=== PATIENT | female | born 1940 | race Caucasian/White ===

== ENCOUNTER 2021-06-10 12:37 | Day surgery (SDC) | payer MEDICARE, OTHER ==
[~2021-06-10] VITALS: Ht 162.6 cm; Wt 71.9 kg
[~2021-06-10 12:37] MED LIST: ASCO500 PO; ASPI81CH PO; ATOR10 PO; BACL10 PO; Bystolic20 MG PO; CALMAGZIN PO; CHOL10002 PO; CYCL10 PO; DICL75ER PO; DIGO.25 PO; ETAN50I IM; Elemental Calc600 MG PO; FISH1000 PO; FURO40 PO; Glucosamine-Ch480 ML PO; HYDR1TAB94 PO; L-LYSINE1000 MG PO; L-Lysine500 M1 PO; LEVSOD100 PO; LOSA50 PO; LOSHYD100 PO; METO25; METO25 PO; METO50 PO; PAN-C 500 TABL1 EACH PO; POTA10T PO; Prempro 0.3 MG/1 TAB PO; Prilosec Otc20 MG; Prilosec Otc20 MG PO; TERA5 PO; Triamcinolone A15 G4 TP; Vitamin D2000 UNIT PO; XARELTO20 MG PO
--- NOTE | 2021-06-10 13:41 | NUR ---
06/10/21 1341 Guzman Davis CALL LIGHT WITHIN REACH
== END 2021-06-10 15:50 | disposition home or self-care (01) ==
LOC: ORSCSDS 12:37
PROVIDERS: Ophthalmology
PROC: 08RJ3JZ Replacement of Right Lens with Synthetic Substitute, Percutaneous Approach (ICD-10-PCS; principal; 2021-06-10 14:00)
DX: H25.11 Age-related nuclear cataract, right eye (principal); I48.91 Unspecified atrial fibrillation; Z79.01 Long term (current) use of anticoagulants; I10 Essential (primary) hypertension; I50.9 Heart failure, unspecified; Z79.899 Other long term (current) drug therapy
CPT/HCPCS: J2001; J2250; J3010; J3301; J7040; V2632

== ENCOUNTER 2021-06-24 09:44 | Day surgery (SDC) | payer MEDICARE, OTHER ==
[~2021-06-24] VITALS: Ht 162.6 cm; Wt 72.4 kg
[2021-06-24] MEDS ORDERED: CARV6.25 PO (10:06)
[2021-06-24] MEDS ORDERED: HYDACE10B PO (10:06)
--- NOTE | 2021-06-24 10:10 | NUR ---
06/24/21 1010 Guzman Daivs CALL LIGHT WITHIN REACH. PLEDGETT WITH TETRACAIN DROPS AT 1003
== END 2021-06-24 11:52 | disposition home or self-care (01) ==
LOC: ORSCSDS 09:44
PROVIDERS: Ophthalmology
PROC: 08RK3JZ Replacement of Left Lens with Synthetic Substitute, Percutaneous Approach (ICD-10-PCS; principal; 2021-06-24 11:00)
DX: H25.12 Age-related nuclear cataract, left eye (principal); I10 Essential (primary) hypertension; E78.00 Pure hypercholesterolemia, unspecified; Z79.01 Long term (current) use of anticoagulants; Z79.899 Other long term (current) drug therapy
CPT/HCPCS: J2001; J2250; J3010; J3301; J7040; V2632

== ENCOUNTER 2024-03-20 11:16 | Day surgery (SDC) | payer MEDICARE, OTHER ==
[~2024-03-20] VITALS: Ht 154.9 cm; Wt 73.3 kg
[~2024-03-20 11:16] MED LIST changes: +ALDACTONE25 MG PO; +Acetaminophen325 M1 PO; +CARV6.25 PO; -CHOL10002 PO; +CeFAZolin Sodium 2,000 MG in NS 100 ML IV SCH; +Chlorhexidine Mouth Care 15 ML UDC MT SCH; +ELIQUIS5 M3 PO; +EUTHYROX50 MCG PO; -FISH1000 PO; +Fish Oil PO; +GABA100 PO; +GLUCHON PO; +HYDACE10B PO; +JARDIANCE10 MG PO; +Lactated Ringer's 1,000 ML IV SCH; +OxyCODONE HCL 10 MG TABCR PO SCH; +Ropivacaine 0.5% HCl/Pf 123.125 MG,EPINEPHrine HCL 0.25 MG,Ketorolac Tromethamine 15 MG... INFIL SCH; +Tranexamic Acid 100 ML IV SCH; +VITAMIN D310 MC4 PO; +Vancomycin HCL 1,000 MG in NS 250 ML IV SCH
--- NOTE | 2024-03-20 13:16 | NUR ---
DR BRICENO AT BEDSIDE TO TALK WITH PATIENT TO INFORM CANCELLING THE SURGERY. DR HOLMAN WILL CALL TO RESCHEDULE.
== END 2024-03-20 22:55 | disposition home or self-care (01) ==
LOC: ORSCMMR 11:16 → ORD 14:15 → ORSCMMR 14:15
DX: M17.12 Unilateral primary osteoarthritis, left knee (principal); Z53.9 Procedure and treatment not carried out, unspecified reason
CPT/HCPCS: A9270; J0171; J0690; J0735; J1885; J2795; J3370; J7050; J7120

== ENCOUNTER 2024-04-03 08:36 | Day surgery (SDC) | payer MEDICARE, OTHER ==
[~2024-04-03] VITALS: Ht 157.5 cm; Wt 73.8 kg
[2024-04-03] VITALS (14 sets, daily range): BP systolic 124–167; BP diastolic 65–98
[~2024-04-03 08:36] MED LIST changes: +Acetaminophen 500 MG Tab PO SCH
--- NOTE | 2024-04-03 09:43 | NUR ---
Ambulatory in Day Surgery.HX-SPONDYLITIS PT HUNCHED OVER AND USING CANE TO AMBULATE. PT REPORTS 5/10 LEFT KNEE PAIN. HISTORY AND ALLERGIES REVIEWED. LUNGS CLEAR. SATS 99% ON RA. HEART SOUNDS IRREGULAR-HR 67. BP WDL. NPO STATUS CONFIRMED. Patient reports completing Chlorhexadine shower X2 prior to admission to hospital.Surgical site prepped with 2% Chlorhexidine cloth wipe.
[2024-04-03] MEDS ORDERED: Vancomycin HCl 1000 MG ADDvantage ONE (10:17)
[2024-04-03] MEDS ORDERED: Bisacodyl 10 MG Supp PR PRN (10:20)
[2024-04-03] MEDS ORDERED: OxyCODONE HCL 5 MG TAB PO PRN ×2 (10:25)
[2024-04-03] MEDS ORDERED: Promethazine HCl 25 MG Tab PO PRN (10:25)
[2024-04-03] MEDS ORDERED: DiphenhydrAMINE HCL 25 MG Cap PO PRN (10:25)
[2024-04-03] MEDS ORDERED: Lactated Ringer's 1,000 ML IV SCH (10:30)
[2024-04-03] MEDS ORDERED: Magnesium Hydroxide Conc 10 ML UDC PO PRN (10:30)
[2024-04-03] MEDS ORDERED: Metoclopramide HCl 5MG / ML 2ML Vial IV PRN (10:30)
[2024-04-03] MEDS ORDERED: HYDROmorphone HCl/Pf 1MG SYR IV PRN (10:30)
[2024-04-03] MEDS ORDERED: Ondansetron HCl 2 MG / ML 2ML Vial IV PRN (10:30)
[2024-04-03] MEDS ORDERED: propofoL 50 ML IV ONE (10:35)
[2024-04-03] MEDS ORDERED: FentaNYL Citrate 50 MCG/ML 2 ML Injection ONE (10:38)
[2024-04-03] MEDS ORDERED: Midazolam HCl 1MG / ML 2ML Vial ONE (10:39)
[2024-04-03] MEDS ORDERED: Baclofen 10 MG Tab PO PRN (10:40)
[2024-04-03] MEDS ORDERED: Ondansetron HCl 2 MG / ML 2ML Vial ONE (11:22)
[2024-04-03] MEDS ORDERED: Dexamethasone Sod Phos 10 MG/ML 1ML VIAL ONE (11:22)
[2024-04-03] MEDS ORDERED: Phenylephrine HCl 100 MCG/ML-NS 10MLSYR (1MG/10ML) ONE ×2 (11:33→11:34)
[2024-04-03] MEDS ORDERED: Labetalol HCL 5 MG/ML 4ML Injection (Single Dose) ONE (12:26)
[2024-04-03] MEDS ORDERED: propofoL 20 ML IV ONE ×2 (12:27→12:51)
[2024-04-03] MEDS ORDERED: [UNRECOGNIZED DRUG - NUTRITION] PO SCH (14:00)
--- NOTE | 2024-04-03 15:25 | NUR ---
PT ARRIVED TO RM 212 FROM PACU AT 1500 ORIENTED TO ROOM AND USE OF CALL LIGHT. VSS. PT NUMB FROM KNEES TO TOES, ABLE TO WIGGLE FEET. WATER AND JELLO PROVIDED. CALL LIGHT IN REACH.
[2024-04-03] MEDS ORDERED: Acetaminophen 500 MG Tab PO SCH (16:00)
[2024-04-03] MEDS ORDERED: Potassium Chloride 10 Meq Tablet SA PO SCH (17:00)
[2024-04-03] MEDS ORDERED: Carvedilol 6.25 MG Tab PO SCH (17:00)
--- NOTE | 2024-04-03 17:16 | NUR ---
SUMMARY NO ACUTE CHANGES SINCE ARRIVING TO UNIT FROM PACU. VSS. POLAR PACK IN PLACE. PT TOLERATING PO, PROVIDED SNACK. MEDICATED PT PER ORDERS FOR PAIN, PT REPORTS TOLERABLE, RATING 6/20. CALL LIGHT IN REACH. PT ANXIOUS. PLEASANT AND COOPERATIVE. AWAITING FIRST VOID POST SURGERY.
[2024-04-03] MEDS ORDERED: Ketorolac Tromethamine 15mg Vial IV SCH (18:00)
[2024-04-03] MEDS ORDERED: NS 250 ML IV PRN (18:10)
[2024-04-03] MEDS ORDERED: CeFAZolin Sodium 2,000 MG in NS 100 ML IV SCH (19:20)
[2024-04-03] MEDS ORDERED: Docusate Sodium 100 MG Cap PO SCH (21:00)
[2024-04-03] MEDS ORDERED: Gabapentin 300 MG Cap PO SCH (21:00)
[2024-04-03] MEDS ORDERED: Vancomycin HCL 1,000 MG in NS 250 ML IV SCH (22:00)
[2024-04-04 03:18] VITALS: BP 125/79
--- NOTE | 2024-04-04 04:40 | NUR ---
SHIFT SUMMARY PT POD 0 LEFT TOTAL KNEE. PT HAS BEEN UP AND AMBULATING AND IS VOIDING. TOLERATING PO INTAKE. PAIN HAS BEEN MANANGED WITH MEDS PER EMAR. PT WAS RATING HER PAIN A 7 (0-10) WHEN ASKED, BUT DESPITE THE NUMBER REPORTED, SHE STATES THAT SHE DOES NOT FEEL MUCH PAIN AND DECLINED PRN PAIN MEDS FOR THE FIRST HALF OF THE SHIFT. SHE REPORTS THAT SHE FELT LIKE THE SPINAL STILL HAD SOME EFFECT AND SHE STATED SHE WONDERED WHEN THE REAL PAIN WOULD COME. PT DID HOWEVER ELECT TO RECEIVE SCHEDULED PAIN MEDICATIONS. PT DID REQUEST PRN'S THIS AM, AND SHE REPORTS RELIEF OF PAIN AFTER OXYCODONE. POST OP VITALS STABLE. SURGICAL SITE WNL. BED IN LOWEST POSITION, CALL LIGHT WITH REACH.
[2024-04-04 04:43] LABS: BASOPHILS ABSOLUTE AUTO 0.02 K/mm3 (0.00-0.23); BASOPHILS PERCENT AUTO 0 % (0-2); EOSINOPHILS PERCENT AUTO 0 % (0-6); Hematocrit 33.7 % (33.0-51.0); Hemoglobin 11.2 g/dL (11.5-16.0); IMMATURE GRAN ABSOLUTE AUTO 0.05 K/mm3 (0.00-0.10); IMMATURE GRAN PERCENT AUTO 0 % (0-1); LYMPHOCYTES ABSOLUTE AUTO 0.56 K/mm3 (0.84-5.20); LYMPHOCYTES PERCENT AUTO 5 % (21-46); MONOCYTES ABSOLUTE AUTO 0.95 K/mm3 (0.16-1.47); MONOCYTES PERCENT AUTO 8 % (4-13); Mean Corpuscular HGB 30.7 pg (26.0-34.0); Mean Corpuscular HGB Conc 33.2 g/dL (31.5-36.5); Mean Corpuscular Volume 92 fL (80-100); Mean Platelet Volume 10.6 fL (9.1-12.4); NEUTROPHILS ABSOLUTE AUTO 10.38 K/mm3 (1.96-9.15); NEUTROPHILS PERCENT AUTO 87 % (41-73); Platelet Count 195 K/mm3 (150-400); RDW Coefficient Variation 13.9 % (11.7-14.2); RDW Standard Deviation 47.6 fL (35.1-46.3); Red Blood Cell Count 3.65 M/mm3 (3.80-5.20); White Blood Cell Count 11.96 K/mm3 (4.00-11.30)
[2024-04-04 05:07] LABS: Bun/Creatinine Ratio 29.7 (12.0-20.0); Calcium, Blood 8.1 mg/dL (8.5-10.1); Creatinine, Blood 0.91 mg/dL (0.40-1.00); Magnesium, Blood 2.2 mg/dL (1.6-2.4); Potassium, Blood 3.9 mmol/L (3.5-5.5)
[2024-04-04] MEDS ORDERED: Levothyroxine Sodium 0.05 MG Tab PO SCH (06:00)
[2024-04-04 07:26] VITALS: BP 122/99
[2024-04-04] MEDS ORDERED: Cholecalciferol 1000 Unit Tablet (=25MCG) PO SCH (09:00)
[2024-04-04] MEDS ORDERED: Trimethoprim/Sulfamethoxazole DS Tab PO SCH (09:00)
[2024-04-04] MEDS ORDERED: Spironolactone 12.5 MG TAB PO SCH (09:00)
[2024-04-04] MEDS ORDERED: Empagliflozin 10 MG TAB PO SCH (09:00)
[2024-04-04] MEDS ORDERED: Apixaban 5 MG Tab PO SCH (09:00)
[2024-04-04] MEDS ORDERED: Furosemide 40 MG Tab PO SCH (09:00)
[2024-04-04] MEDS ORDERED: Docosahexanoic Acid/EPA 1,000 MG CAP PO SCH (09:00)
[2024-04-04] MEDS ORDERED: Ascorbic Acid 500 MG Tab PO SCH (09:00)
[2024-04-04] MEDS ORDERED: Losartan Potassium 50 MG Tab PO SCH (09:00)
[2024-04-04] MEDS ORDERED: Glucosamine Sulfate 500 MG Cap PO SCH (09:00)
[2024-04-04] MEDS ORDERED: ASPI81CH PO (09:35)
[2024-04-04] MEDS ORDERED: OXYC5 PO (09:59)
[2024-04-04] MEDS ORDERED: SULTRIDS PO (10:00)
[2024-04-04] MEDS ORDERED: PROM25 PO (10:00)
--- NOTE | 2024-04-04 11:19 | NUR ---
PT RESTING IN BED W/EYES CLOSED. BREATHING E/U.
[2024-04-04 12:05] VITALS: BP 126/72
--- NOTE | 2024-04-04 12:14 | NUR ---
DISCHARGED PT REVIEWED DC INSTRUCTIONS W/NOA Yost RN. VSS. LEFT UNIT IN WC W/POSSESSIONS, POLAR PACK, AQUACEL DRESSINGS AND DC PAPERWORK, ACCOMPANIED BY FAMILY TO RIDE OUTSIDE.
[2024-04-17] MEDS ORDERED: ETANERCEPT 50 MG/ML SC SCH (09:00)
== END 2024-04-04 12:17 | disposition home or self-care (01) ==
LOC: ORSCMMR 08:36 → ORD 11:00 → ORSCMMR 11:00 → SURS 15:12 → ORSCMMR 04-04 12:17
PROVIDERS: Orthopaedic Surgery
PROC: 0SRD0J9 Replacement of Left Knee Joint with Synthetic Substitute, Cemented, Open Approach (ICD-10-PCS; principal; 2024-04-03 11:00)
DX: M17.12 Unilateral primary osteoarthritis, left knee (principal); I10 Essential (primary) hypertension; I48.91 Unspecified atrial fibrillation; Z79.01 Long term (current) use of anticoagulants; E03.9 Hypothyroidism, unspecified; E78.5 Hyperlipidemia, unspecified; K21.9 Gastro-esophageal reflux disease without esophagitis; Z87.891 Personal history of nicotine dependence; M45.9 Ankylosing spondylitis of unspecified sites in spine; I50.9 Heart failure, unspecified; Z79.899 Other long term (current) drug therapy
CPT/HCPCS: 36415; 73560-LT; 80048; 83735; 85025; 97110; 97116; 97162; 97530; A9270; C1713; C1776; J0171; J0690; J0735; J1100; J1885; J2250; J2371; J2405; J2704; J2795; J3010; J3370; J7050; J7120

== ENCOUNTER → 2024-06-21 | Outpatient (CLI) | payer MEDICARE, OTHER ==
[~2024-06-21] MED LIST changes: -Acetaminophen 500 MG Tab PO SCH; -CeFAZolin Sodium 2,000 MG in NS 100 ML IV SCH; -Chlorhexidine Mouth Care 15 ML UDC MT SCH; -Lactated Ringer's 1,000 ML IV SCH; +OXYC5 PO; -OxyCODONE HCL 10 MG TABCR PO SCH; +PROM25 PO; -Ropivacaine 0.5% HCl/Pf 123.125 MG,EPINEPHrine HCL 0.25 MG,Ketorolac Tromethamine 15 MG... INFIL SCH; +SULTRIDS PO; -Tranexamic Acid 100 ML IV SCH; -Vancomycin HCL 1,000 MG in NS 250 ML IV SCH
== END ==
LOC: LAB SHORT 19:26 → LAB 19:26
DX: B37.2 Candidiasis of skin and nail (principal)
CPT/HCPCS: 87102

== ENCOUNTER → 2024-07-18 | Outpatient (CLI) | payer MEDICARE, OTHER | LOC: LAB SHORT 14:55 → LAB 14:55 | DX: R21 Rash and other nonspecific skin eruption (principal) | CPT/HCPCS: 88312 ==

== ENCOUNTER → 2024-08-20 | Outpatient (CLI) | payer MEDICARE, OTHER ==
[2024-08-20 21:29] LABS: Percent Saturation 28.1 % (15.0-50.0)
== END ==
LOC: LAB 15:10 → LAB SHORT 15:10
PROVIDERS: Internal Medicine Hematology & Oncology
DX: E61.1 Iron deficiency (principal)
CPT/HCPCS: 82728; 83540; 83550

== ENCOUNTER → 2024-10-22 | Outpatient (CLI) | payer MEDICARE, OTHER ==
[2024-10-22 18:47] LABS: BASOPHILS ABSOLUTE AUTO 0.05 K/mm3 (0.00-0.23); BASOPHILS PERCENT AUTO 1 % (0-2); EOSINOPHILS ABSOLUTE AUTO 0.13 K/mm3 (0.00-0.68); EOSINOPHILS PERCENT AUTO 2 % (0-6); Hematocrit 39.9 % (33.0-51.0); Hemoglobin 13.2 g/dL (11.5-16.0); IMMATURE GRAN ABSOLUTE AUTO 0.01 K/mm3 (0.00-0.10); IMMATURE GRAN PERCENT AUTO 0 % (0-1); LYMPHOCYTES ABSOLUTE AUTO 1.75 K/mm3 (0.84-5.20); LYMPHOCYTES PERCENT AUTO 26 % (21-46); MONOCYTES ABSOLUTE AUTO 0.69 K/mm3 (0.16-1.47); MONOCYTES PERCENT AUTO 10 % (4-13); Mean Corpuscular HGB 32.1 pg (26.0-34.0); Mean Corpuscular HGB Conc 33.1 g/dL (31.5-36.5); Mean Corpuscular Volume 97 fL (80-100); Mean Platelet Volume 11.2 fL (9.1-12.4); NEUTROPHILS ABSOLUTE AUTO 4.11 K/mm3 (1.96-9.15); NEUTROPHILS PERCENT AUTO 61 % (41-73); Platelet Count 210 K/mm3 (150-400); RDW Coefficient Variation 13.8 % (11.7-14.2); RDW Standard Deviation 49.1 fL (35.1-46.3); Red Blood Cell Count 4.11 M/mm3 (3.80-5.20); White Blood Cell Count 6.74 K/mm3 (4.00-11.30)
[2024-10-22 22:44] LABS: Percent Saturation 31.1 % (15.0-50.0)
== END | disposition home or self-care (01) ==
LOC: LAB 17:10 → LAB SHORT 17:10
PROVIDERS: Internal Medicine Hematology & Oncology
DX: E61.1 Iron deficiency (principal)
CPT/HCPCS: 82728; 83540; 83550; 85025

== ENCOUNTER 2025-03-01 23:37 | Inpatient (IN) | payer MEDICARE, OTHER ==
[~2025-03-01] VITALS: Ht 160 cm; Wt 73.7 kg
[2025-03-02] VITALS (28 sets, daily range): BP systolic 96–171; BP diastolic 75–139
[2025-03-02 00:04] LABS: BASOPHILS ABSOLUTE AUTO 0.06 K/mm3 (0.00-0.23); BASOPHILS PERCENT AUTO 0 % (0-2); EOSINOPHILS ABSOLUTE AUTO 0.01 K/mm3 (0.00-0.68); EOSINOPHILS PERCENT AUTO 0 % (0-6); Hematocrit 37.6 % (33.0-51.0); Hemoglobin 11.9 g/dL (11.5-16.0); IMMATURE GRAN ABSOLUTE AUTO 0.15 K/mm3 (0.00-0.10); IMMATURE GRAN PERCENT AUTO 1 % (0-1); LYMPHOCYTES ABSOLUTE AUTO 0.76 K/mm3 (0.84-5.20); LYMPHOCYTES PERCENT AUTO 4 % (21-46); MONOCYTES ABSOLUTE AUTO 1.45 K/mm3 (0.16-1.47); MONOCYTES PERCENT AUTO 8 % (4-13); Mean Corpuscular HGB 30.5 pg (26.0-34.0); Mean Corpuscular HGB Conc 31.6 g/dL (31.5-36.5); Mean Corpuscular Volume 96 fL (80-100); Mean Platelet Volume 9.9 fL (9.1-12.4); NEUTROPHILS ABSOLUTE AUTO 14.95 K/mm3 (1.96-9.15); NEUTROPHILS PERCENT AUTO 86 % (41-73); Platelet Count 383 K/mm3 (150-400); RDW Coefficient Variation 14.2 % (11.7-14.2); RDW Standard Deviation 50.4 fL (35.1-46.3); White Blood Cell Count 17.38 K/mm3 (4.00-11.30)
[2025-03-02] MEDS ORDERED: Mag Sulfate 1 GM/D5% 100ML 100 ML IV ONE (00:20)
[2025-03-02 00:32] LABS: Bun/Creatinine Ratio 19.8 (12.0-20.0); Calcium, Blood 8.4 mg/dL (8.5-10.1); Creatinine, Blood 1.21 mg/dL (0.40-1.00); Free Thyroxine 1.43 ng/dL (0.70-1.60); Magnesium, Blood 2.7 mg/dL (1.6-2.4); Thyroid Stimulating Hormone 4.11 uIU/mL (0.360-4.800)
[2025-03-02] MEDS ORDERED: Aspirin 81 MG Chew PO ONE (00:50)
[2025-03-02] MEDS ORDERED: HYDROcodone 5-APAP 325 TAB PO PRN (05:45)
[2025-03-02] MEDS ORDERED: Acetaminophen 325 MG TABLET PO PRN (05:45)
[2025-03-02] MEDS ORDERED: Baclofen 10 MG Tab PO PRN (05:50)
[2025-03-02] MEDS ORDERED: Lactated Ringer's 1,000 ML IV SCH (05:55)
[2025-03-02] MEDS ORDERED: Levothyroxine Sodium 0.05 MG Tab PO SCH (06:00)
[2025-03-02] MEDS ORDERED: Carvedilol 6.25 MG Tab PO SCH (08:00)
[2025-03-02] MEDS ORDERED: Ascorbic Acid 500 MG Tab PO SCH (09:00)
[2025-03-02] MEDS ORDERED: Apixaban 5 MG Tab PO SCH (09:00)
[2025-03-02] MEDS ORDERED: Cholecalciferol 1000 Unit Tablet (=25MCG) PO SCH (09:00)
[2025-03-02] MEDS ORDERED: Docosahexanoic Acid/EPA 1,000 MG CAP PO SCH (09:00)
[2025-03-02] MEDS ORDERED: Furosemide 40 MG Tab PO SCH (09:00)
[2025-03-02] MEDS ORDERED: Empagliflozin 10 MG TAB PO SCH (09:00)
[2025-03-02] MEDS ORDERED: Spironolactone 25 MG Tab PO SCH (09:00)
[2025-03-02] MEDS ORDERED: Losartan Potassium 50 MG Tab PO SCH (09:00)
[2025-03-02] MEDS ORDERED: Cholecalciferol 400 unit Tab PO SCH (09:00)
[2025-03-02] MEDS ORDERED: Misc. Capsule PO SCH (09:00)
[2025-03-02] MEDS ORDERED: CefTRIAXone Sodium 1,000 MG in NS 100 ML IV SCH (10:43)
[2025-03-02 11:42] LABS: BASOPHILS ABSOLUTE AUTO 0.03 K/mm3 (0.00-0.23); BASOPHILS PERCENT AUTO 0 % (0-2); EOSINOPHILS PERCENT AUTO 0 % (0-6); Hematocrit 35.5 % (33.0-51.0); Hemoglobin 12.1 g/dL (11.5-16.0); IMMATURE GRAN ABSOLUTE AUTO 0.14 K/mm3 (0.00-0.10); IMMATURE GRAN PERCENT AUTO 1 % (0-1); LYMPHOCYTES ABSOLUTE AUTO 0.77 K/mm3 (0.84-5.20); LYMPHOCYTES PERCENT AUTO 4 % (21-46); MONOCYTES ABSOLUTE AUTO 2.01 K/mm3 (0.16-1.47); MONOCYTES PERCENT AUTO 12 % (4-13); Mean Corpuscular HGB 31.5 pg (26.0-34.0); Mean Corpuscular HGB Conc 34.1 g/dL (31.5-36.5); Mean Corpuscular Volume 92 fL (80-100); Mean Platelet Volume 10.7 fL (9.1-12.4); NEUTROPHILS ABSOLUTE AUTO 14.46 K/mm3 (1.96-9.15); NEUTROPHILS PERCENT AUTO 83 % (41-73); Platelet Count 330 K/mm3 (150-400); RDW Standard Deviation 47.7 fL (35.1-46.3); Red Blood Cell Count 3.84 M/mm3 (3.80-5.20); White Blood Cell Count 17.41 K/mm3 (4.00-11.30)
[2025-03-02 12:03] LABS: Albumin/Globulin Ratio 0.7 (0.8-1.8); Bilirubin, Total 0.5 mg/dL (0.1-1.0); Calcium, Blood 8.6 mg/dL (8.5-10.1); Creatinine, Blood 1.04 mg/dL (0.40-1.00); Globulin, Blood 4.2 g/dL (2.2-4.0); Potassium, Blood 4.6 mmol/L (3.5-5.5); Total Protein, Blood 7.2 g/dL (6.4-8.2)
[2025-03-02] MEDS ORDERED: Amiodarone HCl 200 MG Tab PO SCH (14:00)
[2025-03-02] MEDS ORDERED: Bumetanide 0.25 MG/ML 10ML Vial IV ONE (15:05)
[2025-03-02] MEDS ORDERED: Doxycycline Hyclate 100 MG in Dextrose 5% 250 ML IV SCH (15:16)
--- NOTE | 2025-03-02 18:19 | NUR ---
SHIFT SUMMARY PT A&OX4. SP02>90% ON RA/2L FOR COMFORT THIS AM. INCREASED TO 6L THIS AFTERNOON WHEN PT C/O OF SOB AND DESATTED TO 70'S WITH A QUESTIONABLE PLEATH. CONTINUES TO C/O OF SOB, MD JOSEPH W/ ORDERS FOR ONE TIME BUMEX, SEE MAR. PT STATES SOB DID NOT IMPROVE POST BUMEX. MD MCCLELLAN W/ ORDERS FOR CHEST XRAY, SEE RESULTS. UPON CARE ASSUMPTION, PT ON AMIO GTT. AMIO DC'D, HR AFIB, 110'S. STARTED ON PO AMIO. T/O AFTERNOON HR INCREASING TO 140'S/150'S. MD JOSEPH W/ ORDERS FOR AMIO BOLUS AND AMIO GTT AT 1MG/MIN UNTIL HE SEES PT IN AM. PLAN FOR ANGIO TU03/04 D/T ELIQUIS. PT UP TO BSC TO VOID/HAVE LOOSE STOOL THIS SHIFT. PT SPOKE TO SIBLINGS MULTIPLE TIMES ON PHONE AND MD JOSEPH CALLED AND UPDATED BROTHER. PT RESTING IN BED, ABX INFUSING PER EMAR, AMIO INFUSING PER NOV, CALL LIGHT IN REACH.
[2025-03-02] MEDS ORDERED: Bumetanide 0.25 MG/ML 4ML ViaL IV ONE (19:15)
[2025-03-02] MEDS ORDERED: Morphine Sulfate 4 MG/1 ML Injection IV ONE (19:35)
[2025-03-02] MEDS ORDERED: Morphine Sulfate 4 MG/1 ML Injection ONE (19:36)
--- NOTE | 2025-03-02 20:23 | NUR ---
ASSUMED CARE/TRANSFER ASSUMED CARE OF PT AT 1900, PT DIAPHORETIC, SOB, C/O CHEST TIGHTNESS, O2 AT 4 LPM NC AND INCREASED TO 5LPM WITH SPO2 >90%, PT PALE, AFIB RHTYM 115-140s, STATES " I FEEL THE SAME WHEN THEY HAD TO SHOCK TO ME WHEN I CAME TO THE HOSPITAL", DR ROOT AT BEDSIDE WITH NEW ORDER RECEIVED FOR 4 MG BUMEX IVP, HYPERTENSIVE, FINANCIAL PLANNING ANALYST CALLED WITH AUBREY Baker RN AT BEDSIDE AND DR CASTILLO AT BEDSIDE, MEDICATED WITH 2 MG MORPHINE IVP, PT RHYTHM CONVERTED TO VTACH DEFIB PADS PLACED AND ZOLL IN ROOM, PT CONVERTED BACK TO AFIB RVR WITHOUT INTERVENTION, 4 MG BUMEX GIVEN IVP AND DECISION MADE TO TRANSFER PT TO ICU
[2025-03-02] MEDS ORDERED: Atorvastatin 40 MG Tab PO SCH (21:00)
[2025-03-02] MEDS ORDERED: Gabapentin 300 MG Cap PO SCH (21:00)
[2025-03-02] MEDS ORDERED: Metoprolol Tartrate 1 MG/ML 5 ML VIAL IV ONE (21:20)
[2025-03-02] MEDS ORDERED: Metoprolol Tartrate 5 ML IV ONE (21:23)
[2025-03-02] MEDS ORDERED: Metoprolol Tartrate 1 MG/ML 5 ML VIAL IV PRN (21:35)
--- NOTE | 2025-03-02 21:57 | NUR ---
PT TRANSFER TO ICU 9 AT 1945: PT TRANSFER TO ICU 9 FROM PCU 4. PT TRANSFER FOR POSSIBLE UNSUSTAINED VTACH AND INCREASED OXYGEN DEMAND. PT TRANSFER TO ICU BED VIA SLIDER SHEET. PT APPEARED DIAPHORETIC AND TACHYPNEIC. MONITOR SHOWED AFIB, RATE 90s-110s. PT INITIALLY ON 6L NC, PLACED ON BIPAP, SETTINGS AT 14/8 50% FOR SPO2>90%. AMIODARONE GTT INFUSING AT 1 MG/MIN TO STAY AT 1 MG/MIN ALL NIGHT, PER DR. JOSEPH. AMIODARONE BOLUS ORDERED AND GIVEN. BP INITIALLY ELEVATED AT TRANSFER, SBP 140s, MAP>65. DR. JOSEPH AT BEDSIDE AT 2100, MONITOR SHOWED AFIB, RATE UP TO 130s, NEW ORDERS GIVEN FOR LOPRESSOR, 5 MG GIVEN W/ AT BEDSIDE. SEE EMAR. DR. JOSEPH VIEWED EKG AND THINKS PT WAS NOT IN VTACH, BUT AFIB W/RVR. 2200: PT APPEARS CALMER, A/Ox4 AND ABLE TO MAKE NEEDS KNOWN. PT FEBRILE TMAX 101.7 VIA TEMP PICHARDO. VSS. WILL UPDATED NEEDED.
[2025-03-03] VITALS (91 sets, daily range): BP systolic 78–133; BP diastolic 56–97
--- NOTE | 2025-03-03 02:22 | NUR ---
UPDATE: DR. JOSEPH NOTIFIED ABOUT PT SBP IN THE 80-90s, MAP>65, HR 80s-90s. ORDERS FOR AMIODARONE GTT AT 0.5 MG/MIN. PT CONTINUES TO BE A/Ox4 AND ABLE TO MAKE NEEDS KNOWN. OXYGEN REQUIREMENT DECREASED, PT ON 3L NC FOR SPO2>95%.
[2025-03-03 03:56] LABS: Creatinine, Blood 1.25 mg/dL (0.40-1.00); Magnesium, Blood 2.8 mg/dL (1.6-2.4); Potassium, Blood 3.9 mmol/L (3.5-5.5)
--- NOTE | 2025-03-03 04:58 | NUR ---
SHIFT SUMMARY: PT A/Ox4 AND ABLE TO MAKE NEEDS KNOWN T/O SHIFT. SBP 80-90s, MAP>65. MONITOR SHOWS AFIB, RATE 70-80s. AMIODARONE GTT INFUSING AT 0.5 MG/MIN. SPO2>90% ON RA. PT DENIES SOB, CP OR PRESSURE. TMAX 102.1, MEDICATED PER EMAR, NOW 99.0 VIA TEMP PICHARDO. TEMP PICHARDO PATENT DRAINING TO GRAVITY. WILL REPORT TO ONCOMING RN.
[2025-03-03] MEDS ORDERED: Pantoprazole Sodium 40 MG Tab PO SCH (06:00)
[2025-03-03 08:08] LABS: International Normalized Ratio 1.28; Prothrombin Time Results 13.8 Sec (9.7-11.5)
[2025-03-03 08:10] LABS: Anti-Xa UFH, PHA Monitoring 1.49 IU/mL
[2025-03-03] MEDS ORDERED: Heparin Sodium,Porcine/0.5 NS 500 ML IV SCH (08:20)
--- NOTE | 2025-03-03 08:30 | NUR ---
ASSUMPTION OF CARE: ASSUMED CARE AT START OF SHIFT (0700). PT IS DOING WELL, ALERT AND ORIENETED AND RESTING IN BED. PT DENIES ANY PAIN, CP, OR SOB AT THIS TIME. LUNG SOUNDS ARE CLEAR AND EQUAL BILATERALY, ON RA WITH SPO2 >95%. A-FIB RYTHM WITH SBP: 80-100'S MAP >65 AND HR: 80-90'S. PT IS ON AMIODARONE GTT PER EMR ORDERS. THEY HAVE PERIPHERAL IV'S IN LAC AND R FOREARM. PICHARDO CATHETER IN PLACE AND DRAINING TO GRAVITY. LINES AND CORDS PLACED OUT OF REACH. CALL LIGHT PLACED WITHIN REACH. WILL CONTINUE TO [facility].
[2025-03-03] MEDS ORDERED: Aspirin 81 MG Chew PO SCH (09:00)
[2025-03-03] MEDS ORDERED: Metoprolol Succinate 25 MG TABCR PO SCH (09:00)
--- NOTE | 2025-03-03 15:02 | NUR ---
Spiritual care visit attempted. Patient is lying in bed and resting but quickly awakens to a knock on the glass door of her patient room. I introduce myself and she immediately responds by saying that she is not interested in a roofing layer visit and that neither herself or her family would request a roofing layer. I will remain available .
[2025-03-03] MEDS ORDERED: Dose Adjust by Pharmacy XX STA (17:30)
[2025-03-03] MEDS ORDERED: Heparin Sodium 5000 Units/ML 1ML MDV IV ONE (17:35)
--- NOTE | 2025-03-03 18:29 | NUR ---
SHIFT SUMMARY: PT IS DOING WELL. ALERT AND ORIENTED. PT HAS BEEN RESTING IN BED ALL DAY, THEY DECLINED GETTING UP TO SIT IN A RECLINER STATING THEY WERE TOO TIRED. PT DOES GET LGIHT HEADEED AND SOB UPON EXERTION. THEY WERE PLACED ON O2 @ 2LPM VIA NC THIS AFTERNOON DUE TO SOB. SPO2 >95%. AFIB RTYHM, SBP: 90-110'S MAP >65 AND HR: 80'S. PERIPHERAL IV IN R FOREARM AND LAC. PICHARDO CATHETER IN PLACE AND DRAINING TO GRAVITY. PT ATE BREAKFAST BUT REFUSED LUNCH AND DINNER STATING THEY DIDN'T HAVE AN APPETITE AND JUST WANTED TO REST INSTEAD. LINES AND CORDS PLACED OUT OF REACH. CALL LIGHT PLACED WITHIN REACH AND PT WAS TOLD TO PRESS CALL BUTTON WHEN THEY NEED ASSISTANCE.
--- NOTE | 2025-03-03 22:07 | NUR ---
ASSUME CARE: BEDSIDE REPORT RECIEVED FROM ENDER RN. PT A/Ox4 AND ABLE TO MAKE NEEDS KNOWN. VSS, MONITOR SHOWS AFIB W/RATE OF 80-90s. PT DENIES CP OR PRESSURE. AMIO GTT INFUSING AT 0.5 MG/MIN, HEPARIN AT 17 U/KG/HR. PT COMPLAINS OF LOW BACK PAIN, MEDICATED PER EMAR AND REPOSITIONED. TEMP PICHARDO IN PLACE DRAINING TO GRAVITY. PT FEBRILE, TEMP 100.1. WILL UPDATE NEEDED.
[2025-03-04] VITALS (16 sets, daily range): BP systolic 99–126; BP diastolic 58–99
[2025-03-04] MEDS ORDERED: Dose Adjust by Pharmacy XX STA ×2 (01:26→09:18)
[2025-03-04] MEDS ORDERED: Heparin Sodium 5000 Units/ML 1ML MDV IV ONE (01:30)
[2025-03-04 03:22] LABS: BASOPHILS ABSOLUTE AUTO 0.04 K/mm3 (0.00-0.23); BASOPHILS PERCENT AUTO 0 % (0-2); EOSINOPHILS ABSOLUTE AUTO 0.02 K/mm3 (0.00-0.68); EOSINOPHILS PERCENT AUTO 0 % (0-6); Hematocrit 34.9 % (33.0-51.0); Hemoglobin 11.9 g/dL (11.5-16.0); IMMATURE GRAN PERCENT AUTO 1 % (0-1); LYMPHOCYTES ABSOLUTE AUTO 1.41 K/mm3 (0.84-5.20); LYMPHOCYTES PERCENT AUTO 10 % (21-46); MONOCYTES ABSOLUTE AUTO 1.71 K/mm3 (0.16-1.47); MONOCYTES PERCENT AUTO 12 % (4-13); Mean Corpuscular HGB 30.1 pg (26.0-34.0); Mean Corpuscular HGB Conc 34.1 g/dL (31.5-36.5); Mean Corpuscular Volume 88 fL (80-100); Mean Platelet Volume 10.4 fL (9.1-12.4); NEUTROPHILS ABSOLUTE AUTO 11.52 K/mm3 (1.96-9.15); NEUTROPHILS PERCENT AUTO 77 % (41-73); NRBC ABSOLUTE 0.05 K/mm3 (0.00-0.02); NRBC Auto 0.3 /100 WBC (0.0-0.2); Platelet Count 349 K/mm3 (150-400); RDW Coefficient Variation 13.9 % (11.7-14.2); RDW Standard Deviation 45.1 fL (35.1-46.3); Red Blood Cell Count 3.95 M/mm3 (3.80-5.20)
[2025-03-04 03:40] LABS: Bun/Creatinine Ratio 29.6 (12.0-20.0); Creatinine, Blood 1.35 mg/dL (0.40-1.00)
--- NOTE | 2025-03-04 05:06 | NUR ---
SHIFT SUMMARY: PT ABLE TO SLEEP SOME T/O THE NIGHT, REMAINS A/Ox4 AND ABLE TO MAKE NEEDS KNOWN. VSS, MONITOR SHOWS AFIB, RATE 70-80s. SPO2>95% ON 2L NC, PT REQUEST TO KEEP NC ON FOR COMFORT SHE FEELS SOB AT TIMES. PT DIAPHORETIC INTERMITTENTLY, TMAX 100.1. PT NPO AT 0000 FOR PRODEDURE TODAY. AMIODARONE GTT AND HEPARIN GTT INFUSING PER EMAR. TEMP PICHARDO PATENT DRAINING TO GRAVITY. WILL REPORT TO ONCOMING RN.
[2025-03-04] MEDS ORDERED: Ondansetron HCl 2 MG / ML 2ML Vial IV PRN (05:35)
--- NOTE | 2025-03-04 09:57 | NUR ---
ASSUMPTION OF CARE: ASSUMED CARE AT START OF SHIFT (0700). PT IS DOING WELL, THEY ARE ALERT AND ORIENTED AND RESTING IN BED. PT STATES HAVING 7/10 LOWER BACK PAIN BUT NO CP OR SOB AT THIS TIME. O2: NC @ 2LPM, SPO2 >95% LUNG SOUNDS ARRE CLEAR AND EQUAL BILATERALLY. A-FIB RYTHM WITH SBP:120'S MAP >65 AND HR: 80'S. PERIPHERAL IV'S IN LAC AND R FOREARM. PICHARDO CATHETER IN PLACE AND DRAINING TO GRAVITY. PT HAS BEEN NPO SINCE MIDNIGHT (03/04/25). LINES, CORDS PLACED OUT OF REACH. CALL LIGHT PLACED WITHIN REACH AND PT WAS TOLD TO PRESS CALL BUTTON [place] NEED ASSISTANCE.
[2025-03-04] MEDS ORDERED: NS 1,000 ML IV SCH (10:55)
--- NOTE | 2025-03-04 11:11 | NUR ---
TRANSFERR: PT TRANSFERRED FROM ICU 9 TO PCU 18. REPORT GIVEN TO METAL FURNITURE REPAIRER. ALL PT BELONGINGS AND MEDICATIONS WENT WITH PT TO PCU. PT TRANSFERRED VIA HOSPITAL BED AND WAS ABLE TO STAND AND PIVOT INTO PCU BED.
--- NOTE | 2025-03-04 14:15 | NUR ---
CARE ASSUMPTION PT A&OX4, ABLE TO MAKE NEEDS KNOWN. SP02>90% ON 2L NC. DENIES SOB. TELEMETRY SHOWS AFIB CONTROLLED 80'S-90'S. DENIES CP/TIGHTNESS. AMIO GTT INFUSING PER EMAR. NPO FOR ANGIO TODAY. HEP GTT INFUSING PER EMAR. C/O OF 710 LOWER BACK PAIN, MEDICATED PER EMAR. DC'D FLUIDS PER EMAR. PT STATES PICHARDO REMOVED PRIOR TO TRANSFER FROM ICU (3 HRS AGO), AWAITING POST PICHARDO VOID. PT RESTING IN ROOM, CALL LIGHT IN REACH.
[2025-03-04] MEDS ORDERED: HYDROcodone 5-APAP 325 TAB PO PRN (14:30)
[2025-03-04] MEDS ORDERED: Verapamil HCL 2.5 MG/ML 2ML Injection ONE (14:46)
[2025-03-04] MEDS ORDERED: Heparin Sodium 1000 Units/ML 10ML MDV ONE ×2 (14:46→16:06)
[2025-03-04] MEDS ORDERED: NS 250 ML IV ONE (14:47)
[2025-03-04] MEDS ORDERED: Nitroglycerin 2 MG/20 ML BTL ONE (14:47)
[2025-03-04] MEDS ORDERED: NS 1,000 ML IV ONE (14:47)
[2025-03-04] MEDS ORDERED: Midazolam HCl 1MG / ML 2ML Vial ONE (15:22)
[2025-03-04] MEDS ORDERED: FentaNYL Citrate 50 MCG/ML 2 ML Injection ONE (15:22)
--- NOTE | 2025-03-04 18:10 | NUR ---
SHIFT SUMMARY PT TO YOGA TEACHER THIS AFTERNOON. NO STENTS PLACED. AMIO GTT AND HEPARIN GTT DC'D. TR BAND IN PLACE, 14CC R RADIAL. NO SIGNS OF BLEEDING/BRUISING OR HEMATOMA. STRONG PULSE, ARM BAND IN PLACE. PT EDUCATED TO NOT USE R ARM FOR LIFTING, PULLING, ETC. THIS RN CALLED BROTHER, REYNALDO, TO UPDATE. ECHO IN ROOM POST ANGIO. PT CURRENTLY IN BED EATING DINNER, CALL LIGHT IN REACH.
[2025-03-04] MEDS ORDERED: Lactobacil 2-S.Thermo-Bifido 1 1 Cap PO SCH (21:00)
[2025-03-04] MEDS ORDERED: Amiodarone HCl 200 MG Tab PO SCH (21:00)
[2025-03-05 03:47] VITALS: BP 122/88
[2025-03-05 03:47] LABS: BASOPHILS ABSOLUTE AUTO 0.05 K/mm3 (0.00-0.23); BASOPHILS PERCENT AUTO 0 % (0-2); EOSINOPHILS ABSOLUTE AUTO 0.03 K/mm3 (0.00-0.68); EOSINOPHILS PERCENT AUTO 0 % (0-6); Hematocrit 34.8 % (33.0-51.0); Hemoglobin 11.6 g/dL (11.5-16.0); IMMATURE GRAN ABSOLUTE AUTO 0.43 K/mm3 (0.00-0.10); IMMATURE GRAN PERCENT AUTO 4 % (0-1); LYMPHOCYTES ABSOLUTE AUTO 1.35 K/mm3 (0.84-5.20); LYMPHOCYTES PERCENT AUTO 11 % (21-46); MONOCYTES ABSOLUTE AUTO 1.27 K/mm3 (0.16-1.47); MONOCYTES PERCENT AUTO 10 % (4-13); Mean Corpuscular HGB 30.1 pg (26.0-34.0); Mean Corpuscular HGB Conc 33.3 g/dL (31.5-36.5); Mean Corpuscular Volume 90 fL (80-100); Mean Platelet Volume 10.4 fL (9.1-12.4); NEUTROPHILS ABSOLUTE AUTO 9.28 K/mm3 (1.96-9.15); NEUTROPHILS PERCENT AUTO 75 % (41-73); NRBC ABSOLUTE 0.14 K/mm3 (0.00-0.02); NRBC Auto 1.1 /100 WBC (0.0-0.2); Platelet Count 367 K/mm3 (150-400); RDW Standard Deviation 46.5 fL (35.1-46.3); Red Blood Cell Count 3.86 M/mm3 (3.80-5.20); White Blood Cell Count 12.41 K/mm3 (4.00-11.30)
[2025-03-05 04:22] LABS: Bun/Creatinine Ratio 30.5 (12.0-20.0); Calcium, Blood 7.6 mg/dL (8.5-10.1); Creatinine, Blood 1.31 mg/dL (0.40-1.00); Potassium, Blood 4.2 mmol/L (3.5-5.5)
--- NOTE | 2025-03-05 05:05 | NUR ---
SHIFT SUMMARY PT AXO X 4. TR BAND DEFLATED AND REMOVED. NO SIGNS OF BLEEDING. HEMATOMA PRESENT AND OUTLINED BY DAY SHIFT NURSE. NO WORSENING OF HEMATOMA OVERNIGHT. PT VOIDED POST ACUPRESSURIST. PT C/O OF NAUSEA X 2. PRN ZOFRAN GIVEN WITH IMPROVEMENT. NORCO X1 GIVEN FOR CHRONIC BACK PAIN. PT'S HR REMAINED IN RATE CONTROLLED AFIB WITH HR 60S-80S. DENIES CP. MAINTAING O2 SATS ABOVE 90% ON 2L NC. VSS. CALL RICHARDSON WITHIN REACH AND ABLE TO DEVORA NEEDS KNOWN.
--- NOTE | 2025-03-05 07:31 | NUR ---
CARLEEN NOTE: THIS RN TO ASSUME TO CARE OF PATIENT. PT SITTING IN BED WATCHING TV. PATIENT AWARE POSSIBLE DISCHARGE TODAY AT SOME POINT. HAS CALL LIGHT SILVANA REACH, BED IN LOWEST POSITION & STATING NOTHING ELSE IS NEEDED AT THIS POINT.
[2025-03-05 07:57] VITALS: BP 123/79
[2025-03-05] MEDS ORDERED: Torsemide 20 MG TAB PO SCH (09:00)
[2025-03-05] MEDS ORDERED: Metoprolol Succinate 25 MG TABCR PO SCH (09:00)
[2025-03-05] MEDS ORDERED: Apixaban 5 MG Tab PO SCH (09:00)
[2025-03-05 11:08] VITALS: BP 136/86
--- NOTE | 2025-03-05 11:54 | NUR ---
md rounded: cardiolgost rounded and updated pt regarding her life vest to be coming today. pt expressed she didn't feel strong enough to be discharged and was notifed that would be not until either tomororw or a few days down the road. would like physical therapy to come work with pt.
--- NOTE | 2025-03-05 13:34 | NUR ---
ROUNDED: ROUNDED AND PT EXPRESSED CONCERNS ABOUT CONTINUING TO BE NAUSEOUS & GETTING ZOFRAN REGULARLY. MD TO TAKE A LOOK AT IMAGING AND TO ADD NEW IF NEEDED.
[2025-03-05 16:56] VITALS: BP 105/83
--- NOTE | 2025-03-05 17:01 | NUR ---
SHIFT SUMMARY: PATIENT IS ALERT AND ORIENTED X4 & COOPERATIVE WITH HER CARE. IS SATITNG >92% ON ROOM AIR, TELE SHOWING AFIB WITH RATE 70-90'S. PT WAS NAUSEOUS THROUGHOUT THE SHIFT AND WAS MEDICATED PER EMAR. A CT SCAN WAS DONE OF THE ABDOMEN,RESULTS ARE PENDING. PT FAMILY CALLED THROUGHOUT THE SHIFT FOR UPDATES. PHYSICAL THERAPY WAS ORDERED, PT DID NOT GET TO WORK WITH THEM TODAY. THE LIFE VEST WAS FITTED AND DELIVERED TO PATIENT. PT AWARE PLAN CONITNUES TO RECEIVE MEDICATIONS & DISCHARGE WITHIN A FEW DAYS ONCE SHE FEELS LIKE SHE REGAINED SOME STRENGTH. DID NOT HAVE MUCH OF AN APPETITE TODAY. PT HAS CALL LIGHT WITHIN REACH, BED IN LOWEST POSITION & STATING NOTHING ELSE IS NEEDED AT HTIS TIME.
[2025-03-05 19:37] VITALS: BP 117/79
[2025-03-05] MEDS ORDERED: Losartan Potassium 25 MG Tab PO SCH (21:00)
[2025-03-05 23:03] VITALS: BP 120/75
--- NOTE | 2025-03-06 02:11 | NUR ---
SHIFT SUMMARY- NO ACUTE CHANGES, PT STILL APPREHENSIVE ABOUT POSSIBLE DISCHARGE. PT EDUCATED ON WHAT TO EXPECT WITH NEW HEART FAILURE DIAGNOSIS.
[2025-03-06 03:24] VITALS: BP 109/57
[2025-03-06 04:25] LABS: BASOPHILS ABSOLUTE AUTO 0.11 K/mm3 (0.00-0.23); BASOPHILS PERCENT AUTO 1 % (0-2); EOSINOPHILS PERCENT AUTO 1 % (0-6); Hematocrit 39.9 % (33.0-51.0); Hemoglobin 12.6 g/dL (11.5-16.0); IMMATURE GRAN ABSOLUTE AUTO 0.34 K/mm3 (0.00-0.10); IMMATURE GRAN PERCENT AUTO 3 % (0-1); LYMPHOCYTES ABSOLUTE AUTO 1.29 K/mm3 (0.84-5.20); LYMPHOCYTES PERCENT AUTO 12 % (21-46); MONOCYTES PERCENT AUTO 10 % (4-13); Mean Corpuscular HGB 30.4 pg (26.0-34.0); Mean Corpuscular HGB Conc 31.6 g/dL (31.5-36.5); Mean Platelet Volume 10.4 fL (9.1-12.4); NEUTROPHILS ABSOLUTE AUTO 8.19 K/mm3 (1.96-9.15); NEUTROPHILS PERCENT AUTO 74 % (41-73); NRBC ABSOLUTE 0.08 K/mm3 (0.00-0.02); NRBC Auto 0.7 /100 WBC (0.0-0.2); Platelet Count 353 K/mm3 (150-400); RDW Coefficient Variation 14.3 % (11.7-14.2); RDW Standard Deviation 50.3 fL (35.1-46.3); Red Blood Cell Count 4.14 M/mm3 (3.80-5.20); White Blood Cell Count 11.13 K/mm3 (4.00-11.30)
[2025-03-06 04:31] LABS: Mean Corpuscular Volume 96 fL (80-100)
[2025-03-06 05:21] LABS: Bun/Creatinine Ratio 28.4 (12.0-20.0); Calcium, Blood 7.9 mg/dL (8.5-10.1); Creatinine, Blood 1.34 mg/dL (0.40-1.00); Potassium, Blood 3.8 mmol/L (3.5-5.5)
[2025-03-06 08:21] VITALS: BP 111/67
[2025-03-06] MEDS ORDERED: Metoprolol Succinate 25 MG TABCR PO SCH (09:00)
[2025-03-06] MEDS ORDERED: Amiodarone HCl 200 MG Tab PO SCH (09:00)
[2025-03-06 11:54] VITALS: BP 144/96
[2025-03-06 16:28] VITALS: BP 119/84
[2025-03-06] MEDS ORDERED: HYDROCODONE-AC1 EA19 PO (17:48)
--- NOTE | 2025-03-06 19:15 | NUR ---
SHIFT SUMMARY PT ALERT, ORIENTED; COOPERATIVE WITH CARE. PT UP WITH 1 PERSON ASSIST AND WALKER. PT REPORTS PAIN TO BACK, MEDICATED PER EMAR. DENIES CHEST PAIN/PRESSURE, NAUSEA, DIZZINESS. TELE AFIB 70-80, BP STABLE. NO EDEMA NOTED. SOB WITH EXERTION, SPO2 >90% ON RA. ABD SOFT, NONTENDER, +BT T/O. OTHER VSS. NO OTHER ACUTE CHANGES NOTED. CALL LIGHT WITHIN REACH. REPORT GIVEN TO ONCOMING RN.
[2025-03-06 20:31] VITALS: BP 128/84
[2025-03-06 23:18] VITALS: BP 105/71
--- NOTE | 2025-03-06 23:38 | NUR ---
TRANSFER OF CARE NOTE REPORT GIVEN TO OLAMIDE Shoemaker RN @ APPROX 2330 PT VSS, HOLDING APPROPRATE CONVERSATION, NO ACUTE CHANGES FROM START OF SHIFT ASSESSMENT.
[2025-03-07 03:07] VITALS: BP 115/68
--- NOTE | 2025-03-07 07:00 | NUR ---
ASSUMED PT'S CARE AT MIDNIGHT,NO EVENT NOTED.PRN AIN MED GIVEN ORDERED.PT AWAKE AT THIS TIME,STATES THAT SHE TAKES NORCO EVERY FOUR HOURS.AM NURSE WILL CHECK WITH DOCTOR TO CHANGE ORDER.CALL LIGHT AND PT'S ITEMS WITHIN REACH.DENIES FURTHER NEEDS.
[2025-03-07 08:01] VITALS: BP 125/75
--- NOTE | 2025-03-07 10:23 | NUR ---
AM NOTE PT ALERT, ORIENTED X4; CALM AND COOPERATIVE WITH CARE. PT REPORTS BACK PAIN, MEDICATED PER ORDERS. PT DENIES CHEST PAIN/PRESSURE, NAUSEA, DIZZINESS AND NUMB/TINGLING. UP WITH 1 PERSON ASSIST WITH GAITBELT AND WALKER. TELE AFIB BBB 60-70'S BP STABLE. NO EDEMA NOTED. SPO2 >90% ON RA, BREATHING EVEN AND UNLABORED AT REST, SOB WITH EXERTION. ABD SOFT, NONTENDER, +BT T/O. PT RECEIVING IV ANTIBIOTICS. AFEBRILE. OTHER VSS. CALL LIGHT WITHIN REACH. EDUCATED PT ON STRESS INDUCED CARDIOMYOPATHY, HEART FAILURE, AFIB AND V-TACH; WRITTEN MATERIALS PROVIDED. PT REPEATS BACK AREAS OF UNDERSTANDING. PT PLANS TO WRITE QUESTIONS DOWN TO ASK PROVIDER.
[2025-03-07 11:17] VITALS: BP 111/63
[2025-03-07 11:31] LABS: Calcium, Blood 8.3 mg/dL (8.5-10.1); Creatinine, Blood 1.24 mg/dL (0.40-1.00); Potassium, Blood 3.6 mmol/L (3.5-5.5)
[2025-03-07 15:38] VITALS: BP 110/77
--- NOTE | 2025-03-07 18:02 | NUR ---
SHIFT SUMMARY NO ACUTE CHANGES NOTED. VSS. PT WORKED WITH PATIENT AND STAIRS THIS AFTERNOON, DEVELOPING A PLAN FOR DISCHARGE. PATIENT HAS A PCP APPOINTMENT ON March WITH DR BARDALES AND WE HAVE CALLED IN THE REFERRAL TO CARDIOLOGY, THEY PLAN TO CALL THE PATIENT NEXT WEEK SCHEDULE THE APPOINTMENT. PATIENT STATES SHE HAS FAMILY THAT WILL TAKE HER HOME. CALL LIGHT WITHIN REACH.
--- NOTE | 2025-03-07 19:37 | NUR ---
ASSUMPTION OF CARE ASSUMED PT'S CARE AT 1900,BEDSIDE REPORT COMPLETED.PT SITTING UP AT THE EDGE OF THE BED.PLAN OF CARE REVIEWED.PT DENIES PAIN AT THIS TIME. PT REMINDS THIS NURSE THAT HER PAIN PILL IS DUE AT 2330.THIS NURSE TOLD PT THAT WILL LOOK IN HER CHART AND WILL ADMINISTER THE MED WHEN IT'S DUE.PT AMBULATED IN HALLWAY WITH WALKER,MANAGER GROCERY BY HER SIDE.PT DENIES FURTHER NEEDS.CALL LIGHT AND PT'S ITEMS WITHIN REACH.MONITORING ONGOING PER CARE PLAN.
[2025-03-07 20:32] VITALS: BP 125/88
[2025-03-07 23:18] VITALS: BP 133/71
[2025-03-08 04:28] VITALS: BP 117/87
--- NOTE | 2025-03-08 06:17 | NUR ---
PT MONITORED THROUGH THE SHIFT,PRN PAIN MEDS GIVEN PER PT'S REQUEST.THIS MORNING AT 0545 PT'S HEART RATE DROPPED DOWN TO 39BPM FOR 3 BEATS PER CLAIM AUDITOR.PT ASYMPTOMATIC ON ASSESSMENT.NO OTHER EVENTS NOTED OVERNIGHT.PT DENIES NEEDS AT THIS TIME.CALL LIGHT AND PT'S ITEMS WITHIN REACH.MONITORING ONGOING PER CAREPLAN.
[2025-03-08 08:02] VITALS: BP 122/59
--- NOTE | 2025-03-08 09:32 | NUR ---
AM NOTE PT UP IN BED READING A BOOK, A&OX4, VSS, RA, AFIB IN 60S WITH BBB ON TELE. UPDATE PROVIDED TO PT AND BROTHERPETR. MEDICATED PER EMAR, IV ABX CONT. COOPERATIVE WITH ALL CARES, CALLS APPROPRIATELY. DENIES C/P, PRESSURE, AND SOB. SBA WITH FWW TO BATHROOM.
[2025-03-08] MEDS ORDERED: PACERONE100 M1 PO ×2 (12:21→12:22)
[2025-03-08] MEDS ORDERED: ASPI81CH PO (12:22)
[2025-03-08] MEDS ORDERED: ATOR40TA PO (12:23)
[2025-03-08] MEDS ORDERED: METO25ER PO (12:23)
[2025-03-08] MEDS ORDERED: OMEP20ER PO (12:24)
[2025-03-08] MEDS ORDERED: TORSE20 PO (12:25)
[2025-03-09] MEDS ORDERED: Amiodarone HCl 200 MG Tab PO SCH (09:00)
== END 2025-03-08 13:47 | disposition home health service (06) | DRG 286 ==
LOC: ER 23:37 → PCU 23:38 → ER 23:38 → PCU 23:38 → ICUE 03-02 14:54 → PCU 03-02 20:07 → ICUE 03-03 12:11 → PCU 03-04 10:49
PROVIDERS: Emergency Medicine; Family Medicine; Internal Medicine; Internal Medicine Cardiovascular Disease; ADMIT Internal Medicine
PROC: 5A2204Z Restoration of Cardiac Rhythm, Single (ICD-10-PCS; 2025-03-02)
PROC: 5A09357 Assistance with Respiratory Ventilation, Less than 24 Consecutive Hours, Continuous Positive Airway Pressure (ICD-10-PCS; 2025-03-02)
PROC: 4A023N7 Measurement of Cardiac Sampling and Pressure, Left Heart, Percutaneous Approach (ICD-10-PCS; principal; 2025-03-04)
PROC: B2111ZZ Fluoroscopy of Multiple Coronary Arteries using Low Osmolar Contrast (ICD-10-PCS; 2025-03-04)
PROC: 4A033BC Measurement of Arterial Pressure, Coronary, Percutaneous Approach (ICD-10-PCS; 2025-03-04)
DX: I48.19 Other persistent atrial fibrillation (principal); I50.31 Acute diastolic (congestive) heart failure; J96.01 Acute respiratory failure with hypoxia; J18.9 Pneumonia, unspecified organism; E87.1 Hypo-osmolality and hyponatremia; N17.9 Acute kidney failure, unspecified; N39.0 Urinary tract infection, site not specified; I24.89 Other forms of acute ischemic heart disease; I13.0 Hypertensive heart and chronic kidney disease with heart failure and stage 1 through stage 4 chronic kidney disease, or unspecified chronic kidney disease; I49.01 Ventricular fibrillation; I47.20 Ventricular tachycardia, unspecified; I25.10 Atherosclerotic heart disease of native coronary artery without angina pectoris; E78.5 Hyperlipidemia, unspecified; E03.9 Hypothyroidism, unspecified; M19.90 Unspecified osteoarthritis, unspecified site; M06.9 Rheumatoid arthritis, unspecified; Z96.652 Presence of left artificial knee joint; M45.6 Ankylosing spondylitis lumbar region; M79.7 Fibromyalgia; I44.7 Left bundle-branch block, unspecified; R79.89 Other specified abnormal findings of blood chemistry; I95.9 Hypotension, unspecified; G89.4 Chronic pain syndrome; D72.829 Elevated white blood cell count, unspecified; N18.30 Chronic kidney disease, stage 3 unspecified; R31.9 Hematuria, unspecified; Z98.890 Other specified postprocedural states; Z87.891 Personal history of nicotine dependence; Z79.899 Other long term (current) drug therapy; Z79.01 Long term (current) use of anticoagulants; Z79.890 Hormone replacement therapy; Z79.891 Long term (current) use of opiate analgesic
CPT/HCPCS: 36415; 36416; 51702; 71045; 74176; 76937; 80048; 80053; 82947; 83735; 83880; 84145; 84439; 84443; 84484; 85025; 85347; 85520; 85610; 85730; 87040; 87077; 87086; 87186; 93005; 93010; 93458; 93571; 94660; 96365; 96365-59; 96366; 96375; 97110; 97116; 97162; 97530; 99152; 99153; 99285-25; A9270; C1769; C1887; C1894; C8929; G0378; J0282; J0696; J1644; J2250; J2270; J2405; J3010; J3475; J7030; J7050; J7060; J7120; Q9957; Q9967

== ENCOUNTER → 2025-04-01 | Outpatient (CLI) | payer MEDICARE, OTHER ==
[~2025-04-01] MED LIST changes: +ATOR40TA PO; +HYDROCODONE-AC1 EA19 PO; +METO25ER PO; +OMEP20ER PO; +PACERONE100 M1 PO; +TORSE20 PO
[2025-04-01 17:10] LABS: Alanine Aminotransfer (ALT/SGP 28.0 U/L (12-78); Albumin, Blood 4.1 g/dL (3.4-5.0); Albumin/Globulin Ratio 1.2 (0.8-1.8); Anion Gap 7.0 mmol/L (3-11); Aspartate Aminotrans (AST/SGOT 17.0 U/L (12-37); Bilirubin, Total 0.8 mg/dL (0.1-1.0); Blood Urea Nitrogen 32.0 mg/dL (8-24); CO2, Blood 29.0 mmol/L (21-32); Calcium, Blood 8.6 mg/dL (8.5-10.1); Chloride, Blood 100.0 mmol/L (98-108); Creatinine, Blood 1.22 mg/dL (0.40-1.00); Globulin, Blood 3.4 g/dL (2.2-4.0); Glucose, Blood 104.0 mg/dL (70-99); Magnesium, Blood 2.4 mg/dL (1.6-2.4); Potassium, Blood 3.2 mmol/L (3.5-5.5); Sodium, Blood 133.0 mmol/L (136-145); Total Protein, Blood 7.5 g/dL (6.4-8.2)
== END | disposition home or self-care (01) ==
LOC: LAB 14:50 → LAB SHORT 14:50
PROVIDERS: Internal Medicine Cardiovascular Disease
DX: I48.91 Unspecified atrial fibrillation (principal); I10 Essential (primary) hypertension
CPT/HCPCS: 80053; 83735

== ENCOUNTER → 2025-04-08 | Outpatient (CLI) | payer MEDICARE, OTHER ==
[2025-04-08 19:08] LABS: Anion Gap 10.0 mmol/L (3-11); Blood Urea Nitrogen 28.0 mg/dL (8-24); CO2, Blood 26.0 mmol/L (21-32); Calcium, Blood 8.7 mg/dL (8.5-10.1); Chloride, Blood 105.0 mmol/L (98-108); Creatinine, Blood 1.0 mg/dL (0.40-1.00); Glucose, Blood 118.0 mg/dL (70-99); Magnesium, Blood 2.7 mg/dL (1.6-2.4); Potassium, Blood 3.7 mmol/L (3.5-5.5); Sodium, Blood 137.0 mmol/L (136-145)
== END ==
LOC: LAB SHORT 17:27 → LAB 17:27
PROVIDERS: Internal Medicine Cardiovascular Disease
DX: I42.0 Dilated cardiomyopathy (principal)
CPT/HCPCS: 80048; 83735

== ENCOUNTER → 2025-04-15 | Outpatient (CLI) | payer MEDICARE, OTHER ==
[2025-04-15 16:17] LABS: Source, Urine Clean Catch
[2025-04-15 17:31] LABS: Bilirubin, Urine Neg (Neg); Color, Urine Yellow (P-Yellow); Glucose Qualitative, Urine 2+ (Neg); Ketones, Urine Neg (Neg); Leukocyte Esterase, Urine 3+ (Neg); Protein, Urine Neg (Neg); Specific Gravity, Urine 1.010 (1.003-1.022); Urobilinogen, Urine NORM (Normal)
[2025-04-15 17:38] LABS: White Blood Cells, Urine TNTC /hpf (0-5)
== END ==
LOC: LAB SHORT 16:16 → LAB 16:16
PROVIDERS: Family Medicine
DX: N39.0 Urinary tract infection, site not specified (principal)
CPT/HCPCS: 81001; 87077; 87086; 87186

== ENCOUNTER → 2025-05-04 | Outpatient (CLI) | payer MEDICARE, OTHER | LOC: LAB 15:27 → LAB SHORT 15:27 | DX: N39.0 Urinary tract infection, site not specified (principal) | CPT/HCPCS: 87077; 87086; 87186 ==